=== PATIENT | male | born 1980 | race African-American/Black ===

== ENCOUNTER 2018-03-28 20:31 | Emergency (ER) | payer OTHER ==
[~2018-03-28] VITALS: Ht 185.4 cm; Wt 81.7 kg
[~2018-03-28 20:31] MED LIST: ACCUNEB SO1.25 MG/1; ADDERALL 20 MG20 M1 PO; AUGMENTIN 875875 MG PO; NORCO 5-325 TA1 EACH PO
[2018-03-29 05:05] VITALS: BP 113/69
== END 2018-03-29 05:05 | disposition home or self-care (01) ==
LOC: ER 20:31
DX: F10.129 Alcohol abuse with intoxication, unspecified (principal); F90.9 Attention-deficit hyperactivity disorder, unspecified type

== ENCOUNTER → 2020-06-11 | Outpatient (CLI) | payer OTHER | LOC: LAB 14:00 | PROVIDERS: ATTEND Nurse Practitioner | DX: R05 Cough (principal); R50.9 Fever, unspecified; Z20.822 Contact with and (suspected) exposure to COVID-19 ==